=== PATIENT | male | born 1955 | race Caucasian/White ===

== ENCOUNTER 2019-12-22 08:05 | Outpatient (CLI) | payer OTHER, SELFPAY ==
[2019-12-22 08:53] LABS: Prostate Specific Antigen Scr 1.03 ng/mL (0-4)
[2019-12-22 09:04] LABS: Alanine Aminotransferase 45 U/L (0-41); Albumin Level 4.4 g/dL (3.5-5.2); Alkaline Phosphatase 54 IU/L (40-130); Anion Gap 14.5 (5-19); Aspartate Amino Transferase 36 U/L (0-40); Blood Urea Nitrogen 21 mg/dL (8-23); Calcium 9.7 mg/dL (8.5-10.5); Carbon Dioxide 26 mmol/L (22-29); Chloride 100 mmol/L (98-107); Chol HDL Ratio 3.24 mg/dL (1.0-5.00); Cholesterol 175 mg/dL (0-200); Globulin 3.3 g/dL (1.3-4.6); Glomerular Filtration Rate 85.2 mL/min (90-130); Glucose 124 mg/dL (65-115); HDL Cholesterol 54 mg/dL (60-100); LDL Cholesterol Calculated 100 mg/dL (50-129); LDL HDL Ratio 1.85 RATIO (0.00-3.22); Osmolality Calculated 280 mOsm/kg (285-295); Potassium 4.5 mmol/L (3.5-5.1); Sodium 136 mmol/L (136-145); Total Bilirubin 0.4 mg/dL (0.15-1.2); Total Protein 7.7 g/dL (6.6-8.7); Triglycerides 107 mg/dL (0-150)
== END 2019-12-22 08:06 | disposition home or self-care (01) ==
LOC: LAB 08:10
PROVIDERS: PCP Family Medicine; Visit Provider Family Medicine
DX: E78.2 Mixed hyperlipidemia (principal); Z79.899 Other long term (current) drug therapy; I10 Essential (primary) hypertension; R73.01 Impaired fasting glucose; Z12.5 Encounter for screening for malignant neoplasm of prostate
CPT/HCPCS: 36415; 80053; 80061; G0103

== ENCOUNTER 2020-12-27 11:12 | Outpatient (CLI) | payer OTHER, SELFPAY ==
[2020-12-27 12:09] LABS: Prostate Specific Antigen 0.643 ng/mL (0-4)
[2020-12-27 12:21] LABS: Alanine Aminotransferase 37 U/L (0-41); Albumin Level 4.2 g/dL (3.5-5.2); Alkaline Phosphatase 54 IU/L (40-130); Anion Gap 14.8 (5-19); Aspartate Amino Transferase 22 U/L (0-40); Blood Urea Nitrogen 16 mg/dL (8-23); Carbon Dioxide 26 mmol/L (22-29); Chloride 104 mmol/L (98-107); Chol HDL Ratio 2.68 mg/dL (1.0-5.00); Cholesterol 158 mg/dL (0-200); Globulin 2.8 g/dL (1.3-4.6); Glomerular Filtration Rate 113.5 mL/min (90-130); Glucose 102 mg/dL (65-115); HDL Cholesterol 59 mg/dL (60-100); LDL Cholesterol Calculated 82 mg/dL (50-129); LDL HDL Ratio 1.39 RATIO (0.00-3.22); Osmolality Calculated 291 mOsm/kg (285-295); Potassium 4.8 mmol/L (3.5-5.1); Sodium 140 mmol/L (136-145); Total Bilirubin 0.2 mg/dL (0.15-1.2); Triglycerides 84 mg/dL (0-150)
== END 2020-12-27 11:13 | disposition home or self-care (01) ==
PROVIDERS: PCP Family Medicine; Visit Provider Family Medicine
DX: I10 Essential (primary) hypertension (principal)
CPT/HCPCS: 36415; 80053; 80061; 84153

== ENCOUNTER 2021-12-28 07:06 | Outpatient (CLI) | payer MEDICARE, SELFPAY ==
[2021-12-28 08:22] LABS: Alanine Aminotransferase 38 U/L (0-41); Albumin Level 4.3 g/dL (3.5-5.2); Alkaline Phosphatase 55 U/L (40-130); Anion Gap 15.4 (5-19); Aspartate Amino Transferase 27 U/L (0-40); Blood Urea Nitrogen 18 mg/dL (8-23); Calcium 9.4 mg/dL (8.5-10.5); Carbon Dioxide 27 mmol/L (22-29); Chloride 102 mmol/L (98-107); Chol HDL Ratio 3.18 mg/dL (1.0-5.00); Cholesterol 181 mg/dL (0-200); Globulin 2.9 g/dL (1.3-4.6); Glomerular Filtration Rate 84.7 mL/min (90-130); Glucose 114 mg/dL (65-115); HDL Cholesterol 57 mg/dL (60-100); LDL Cholesterol Calculated 108 mg/dL (50-129); LDL HDL Ratio 1.89 RATIO (0.00-3.22); Osmolality Calculated 293 mOsm/kg (285-295); Potassium 4.4 mmol/L (3.5-5.1); Prostate Specific Antigen 0.545 ng/mL (0-4); Sodium 140 mmol/L (136-145); Total Bilirubin 0.2 mg/dL (0.15-1.2); Total Protein 7.2 g/dL (6.6-8.7); Triglycerides 82 mg/dL (0-150)
== END 2021-12-28 07:07 | disposition home or self-care (01) ==
LOC: LAB 07:11
PROVIDERS: PCP Family Medicine; Visit Provider Family Medicine
DX: E78.2 Mixed hyperlipidemia (principal); I10 Essential (primary) hypertension; Z12.5 Encounter for screening for malignant neoplasm of prostate
CPT/HCPCS: 36415; 80053; 80061; 84153

== ENCOUNTER 2022-09-14 07:08 | Day surgery (SDC) | payer MEDICARE, OTHER, SELFPAY ==
[2022-09-12 13:17] VITALS: BMI 44.6
[2022-09-14 07:29] VITALS: BP 174/97; PULSE 90; RESP 18; TEMP 36.7; O2SAT 96
[2022-09-14] MEDS: sodium chloride 0.9% 1,000 ML 30 ML IV (07:29)
--- NOTE | 2022-09-14 07:56 | P.ANESASSM_ITS ---
Pre-Anesthetic Assessment Height/Weight: Height 1.7 m Weight 129.274 kg Temp Pulse Resp BP Pulse Ox O2 Del Method 98.1 F 90 18 174/97 96 Room Air 09/14/22 07:29 09/14/22 07:29 09/14/22 07:29 09/14/22 07:29 09/14/22 07:29 09/14/22 07:29 Operation Date: 09/14/22 09:00 Proposed Procedures p [id number] colon Z1211(Not Applicable) - Aly Nice DO Familial anesthetic complications: none Was Beta Alissa taken within 24 hours: Yes Was Clonidine taken within 24 hours: N/A Last intake: Intake Last Liquid Date 09/13/22 Last Liquid Time 23:55 Last Solid Date 09/11/22 Social Alcohol and No tobacco Exam alert and oriented x 3 Airway Submandibular: within normal limits Cervical ROM: within normal limits Mallampati: Class III Dentition: full and other (crowns in back) History/ROS No significant history except as noted Pulmonary None reported CV/HEM Hypertension None reported Hepatic None reported GI Gastroesophageal Reflux Disease Metabolic Hyperlipidemia and Morbid Obesity [facility] [place] None reported Neuropsych None reported Anesthetic Plan ASA status: 3 Anesthesia: Anesthesia Evaluation and MAC Risk of > 500 ml blood loss (7ml/kg in children): No Medications/Allergies Home Medications Medication Instructions Recorded Confirmed Last Taken Type atorvastatin 20 mg tablet 20 mg PO DAILY 08/13/22 09/12/22 09/13/22 History chlorthalidone 25 mg tablet 50 mg PO DAILY 08/13/22 09/12/22 09/13/22 History carvedilol 6.25 mg tablet 6.25 mg PO BID 09/12/22 09/12/22 09/14/22 History fenofibrate nanocrystallized 145 145 mg PO DAILY 09/12/22 09/12/22 09/13/22 History mg tablet triamcinolone acetonide 0.1 % 1 applic topical BID PRN Itching 09/12/22 09/12/22 09/12/22 History topical ointment Allergies Allergy/AdvReac Type Severity Reaction Status Date / Time lisinopril Allergy angioedema Verified 09/14/22 07:24 Current Medications Generic Name Dose Route Start Last Admin Trade Name Freq PRN Reason Stop Dose Admin Sodium Chloride 1,000 mls @ 30 mls/hr 09/14/22 07:15 09/14/22 07:29 Sodium Chloride 0.9% IV 09/15/22 07:14 30 mls/hr .Q24H DELBERT Administration Data Anesthesia Cardiac Studies: No Data to Display
--- NOTE | 2022-09-14 09:22 | PM.HP ---
Providers/Chief Complaint Primary Care Provider: Remi Jack MD Chief Complaint: Z12.11 History of Present Illness Hakan Jain is a 67 year old male who presents for a screening colonoscopy. His last colonoscopy was 12 years ago and no polyps were identified. He denies any abdominal pain, nausea, emesis, diarrhea, constipation, family history of colon cancer, hematochezia and/or melena. Medications/Allergies Home Medications Medication Instructions Recorded Confirmed Last Taken Type atorvastatin 20 mg tablet 20 mg PO DAILY 08/13/22 09/12/22 09/13/22 History chlorthalidone 25 mg tablet 50 mg PO DAILY 08/13/22 09/12/22 09/13/22 History carvedilol 6.25 mg tablet 6.25 mg PO BID 09/12/22 09/12/22 09/14/22 History fenofibrate nanocrystallized 145 145 mg PO DAILY 09/12/22 09/12/22 09/13/22 History mg tablet triamcinolone acetonide 0.1 % 1 applic topical BID PRN Itching 09/12/22 09/12/22 09/12/22 History topical ointment Allergies Allergy/AdvReac Type Severity Reaction Status Date / Time lisinopril Allergy angioedema Verified 09/14/22 07:24 PFSH Acute PFSH: Medical History (Updated 09/14/22 @ 09:22 by Aly Nice DO) No pertinent past medical history Surgical History (Updated 09/14/22 @ 09:22 by Aly Nice DO) No pertinent past surgical history Vitals/I&O/Wt Last Vital Signs Temp 98.1 F 09/14/22 07:29 Pulse 90 09/14/22 07:29 Resp 18 09/14/22 07:29 BP 174/97 09/14/22 07:29 Pulse Ox 96 09/14/22 07:29 O2 Del Method Room Air 09/14/22 07:29 Weight last 48 hrs Weight 285 lb A&P Assessment and plan (1) Colon cancer screening: Plan Colonoscopy The risks and benefits of the procedure, including bleeding, infection, intestinal perforation requiring surgery, missed lesion were explained to the patient. The patient is understanding of the risks and wishes to proceed. Attestations Medical Necessity Statement*: Home Coding Level of Care Code Acute Code for Chg Fwd Diagnoses Colon cancer screening Z12.11
[2022-09-14 09:42] VITALS: BP 161/84; PULSE 69; RESP 18; TEMP 36.1; O2SAT 93
[2022-09-14 09:52] VITALS: BP 160/86; PULSE 78; RESP 18; O2SAT 94
[2022-09-14 09:56] VITALS: BP 160/86; PULSE 74; RESP 18; O2SAT 95
--- NOTE | 2022-09-14 09:59 | ANE.PACU2 ---
Inpatient post-anesthesia follow up: Airway intact: Yes Vital signs: Temperature 97 F Pulse Rate 74 Respiratory Rate 18 Blood Pressure 160/86 Pulse Oximetry 95 Oxygen Delivery Me thod Room Air Oxygen Flow Rate Fraction of Inspir ed Oxygen Hydration adequate: Yes Nausea and vomiting: No Pain level: 1 Mental status: Baseline
[2022-09-14 10:07] VITALS: BP 158/87; PULSE 71; RESP 18; O2SAT 95
== END 2022-09-14 10:16 | disposition home or self-care (01) ==
PROVIDERS: PCP Family Medicine; Visit Provider Surgery
PROC: 0DJD8ZZ Inspection of Lower Intestinal Tract, Via Natural or Artificial Opening Endoscopic (ICD-10-PCS; CPT 45378; principal; 2022-09-14 09:00)
DX: Z12.11 Encounter for screening for malignant neoplasm of colon (principal); K21.9 Gastro-esophageal reflux disease without esophagitis; E78.5 Hyperlipidemia, unspecified; E66.01 Morbid (severe) obesity due to excess calories; Z68.41 Body mass index [BMI] 40.0-44.9, adult; K57.30 Diverticulosis of large intestine without perforation or abscess without bleeding; K64.8 Other hemorrhoids
CPT/HCPCS: G0121; J2704; J7030

== ENCOUNTER 2023-02-04 11:40 | Outpatient (CLI) | payer MEDICARE, OTHER, SELFPAY ==
--- NOTE | 2023-02-04 | ECG_ITS ---
[facility] Test Date: 2023-02-04 Pat Name: Hakan Jain Department: Room: Gender: Male [employer] Operator: Annamaria Gayle : 1955 Requested By: Remi Andrews Order Number: [id number] Cherelle MD: Mel Adams M.D. Interpretive Statements NAME OF STUDY: TREADMILL STRESS TEST INDICATION: Dyspnea Baseline blood pressure of 154/88 mm Hg, heart rate of 82 beats per minute and oxygen saturation 93%. EKG showed sinus rhythm, normal axis with nonspecific T wave inversion in lead III. The patient exercised for 5 minutes 38 seconds on a standard Dk protocol. Patient attained a maximum heart rate of 132 beats per minute(85% of the maximum predicted heart rate) with a blood pressure at the peak exercise of 211/70 mm Hg oxygen saturation of 93%. The EKG at the peak exercise revealed sinus tachycardia with no significant ST-T wave changes. Patient did not have any chest pain or any significant arrhythmis with the exercise. During the recovery phase, there were no new changes. Blood pressure at the end of the recovery phase was 164/78 mm Hg with a heart rate of 82 beats per minute oxygen saturation of 98%. CONCLUSION: 1. Normal EKG response to treadmill exercise. 2. No exercise-induced chest pain or cardiac arrhythmia 3. Good exercise tolerance for age, attained a maximum of 7 METs. 4. Baseline hypertension with hypertensive response to exercise. Electronically Signed On 02-08-2023 14:05:11 CDT by Mel Adams M.D. [id number]
[2023-02-04 12:00] VITALS: BMI 45.1
[2023-02-04 12:45] VITALS: BP 164/78; PULSE 82
== END 2023-02-04 11:41 | disposition home or self-care (01) ==
LOC: CDL 11:42
PROVIDERS: PCP Family Medicine; Visit Provider Family Medicine
DX: R06.02 Shortness of breath (principal)
CPT/HCPCS: 93017

== ENCOUNTER → 2023-08-13 09:06 | Outpatient (BNVA) | payer MEDICARE, OTHER, SELFPAY | PROVIDERS: PCP Family Medicine; Visit Provider Nurse Practitioner Family | DX: L57.0 Actinic keratosis (principal); L57.8 Other skin changes due to chronic exposure to nonionizing radiation; D22.5 Melanocytic nevi of trunk; L82.0 Inflamed seborrheic keratosis; L82.1 Other seborrheic keratosis; L81.4 Other melanin hyperpigmentation | CPT/HCPCS: 17000; 17110; 99213 ==

== ENCOUNTER → 2024-08-12 08:22 | Outpatient (BNVA) | payer MEDICARE, OTHER, SELFPAY | PROVIDERS: PCP Family Medicine; Visit Provider Nurse Practitioner Family | DX: D22.5 Melanocytic nevi of trunk (principal); L81.4 Other melanin hyperpigmentation; L57.8 Other skin changes due to chronic exposure to nonionizing radiation; L82.1 Other seborrheic keratosis; D48.5 Neoplasm of uncertain behavior of skin; L57.0 Actinic keratosis | CPT/HCPCS: 11102; 17000; 99213 ==

== ENCOUNTER → 2024-09-09 14:49 | Outpatient (BNVA) | payer MEDICARE, OTHER, SELFPAY | PROVIDERS: PCP Family Medicine; Visit Provider Dermatology | DX: D22.5 Melanocytic nevi of trunk (principal); L91.8 Other hypertrophic disorders of the skin | CPT/HCPCS: 99213 ==